=== PATIENT | female | born 1985 | race Caucasian/White ===

== ENCOUNTER 2022-04-19 09:16 | Emergency (ER) | payer OTHER, SELFPAY ==
[2022-04-19 09:26] VITALS: BP 136/78; PULSE 71; RESP 16; TEMP 36.4; O2SAT 99; BMI 21.3
--- NOTE | 2022-04-19 09:29 | DI.RAD.S_ITS ---
PROCEDURE: XR HAND RT MIN 3V INDICATIONS: punched a fridge, mild swelling to 5th knuckle TECHNIQUE: 3 views of the hand(s) acquired. COMPARISON: None. FINDINGS: Bones: There is a moderately displaced, moderately angulated fracture of distal 5th metacarpal. No additional fractures seen. Soft tissues: Soft tissue swelling is seen. IMPRESSION: Distal 5th metacarpal fracture. Dictated by: Moncho Steiner M.D. on 04/19/2022 at 8:56 Approved by: Moncho Steiner M.D. on 04/19/2022 at 8:56
--- NOTE | 2022-04-19 09:50 | ED_ITS ---
HPI - Extremity Injury (Upper) General Chief Complaint: Extremity Injury, Upper Stated Complaint: Possible nuckle fracture Time Seen by Provider: 04/19/22 09:22 History of Present Illness HPI narrative: 37-year-old female nonsmoker with noncontributory medical history presents with a chief complaint of right hand pain after punching a refrigerator about 1 hour ago. She is pain over the knuckle on her right hand at the base of her pinky. There is no laceration or abrasion. She denies any numbness, tingling or weakness. She denies any pain in the wrist, elbow or shoulder. She is otherwise well and free of complaint Review of Systems Review of Systems Narrative: GENERAL: Denies chills, fatigue, malaise, fever, sweats. HEENT: Denies sinus pain, ear pain, sore throat, difficulty swallowing, dizziness. RESPIRATORY: Denies dyspnea, cough, wheezing, hemoptysis, sputum. CARDIOVASCULAR: Denies chest pain, palpitations, orthopnea, edema, GASTROINTESTINAL: Denies nausea, vomiting, abdominal pain, diarrhea, constipation, melena. : Denies dysuria, frequency, incontinence, hematuria, urinary retention. MUSCULOSKELETAL: See HPI SKIN: Denies rash, skin lesions, or other NEUROLOGIC: Denies weakness, headache, numbness, change in speech, confusion, seizures, incoordination. PSYCHIATRIC: No concerning psychosocial issues. 12 point review of systems is negative except for those stated above Exam Narrative Exam Narrative: GEN: AOx3 and in mild distress EYES: Pupils are equal, round, and reactive to light and accommodation. Extraoccular muscles are intact bilaterally. There is no subconjunctival hemorrhage or exudate. CHEST: Lungs are clear to auscultation bilaterally and free of wheezes, rales, or rhonchi. Heart rate is regular rhythm, there are no murmurs, clicks, rubs, or gallops. There is no chest wall tenderness. ABD: Abdomen is soft and nontender. There is no guarding or rebound. Bowel sounds are normal in all 4 quadrants. There is no mass or organomegaly. EXT: Full but painful range of motion of right hand and fingers. Pain and tenderness overlying 5th metacarpal phalangeal joint. Minimal swelling, closed, isolated and neurovascularly intact SKIN: Warm, pink, and dry. No erythema or rash Initial Vital Signs Initial Vital Signs: Vital Signs Temperature 97.6 F 04/19/22 09:26 Pulse Rate 71 04/19/22 09:26 Respiratory Rate 16 04/19/22 09:26 Blood Pressure 136/78 04/19/22 09:26 Pulse Oximetry 99 04/19/22 09:26 Oxygen Delivery Method 04/19/22 09:26 Procedures Nerve Block Nerve Block 1: Time out performed: Yes Local Anesthetic: lidocaine 2% Amount of anesthesia used (mL): 3 Side: right Nerve Blocks: hematoma block Procedure Successful: No Patient Tolerated Procedure: Well Complications: pain with procedure Orthopedic Fracture Reduction Fracture #1: Time Out Performed: Yes Side: right Fracture Reduction Location: metatarsal Analgesia: hematoma block Technique: direct manipulation Post-reduction neuro exam: intact Post-reduction vascular exam: intact Splint Applied: Yes Patient Tolerated Procedure: Well Orthopedic Splinting/Casting Injury #1: Side: right Upper Extremity Injury Location: hand Upper Extremity Immobilizer: ulnar gutter Post splinting neuro exam: intact Post splinting vascular exam: intact Placed by: Provider Additional Comments: Hematoma block described above provided minimal relief. I did attempt reduction with splint placement, but have little confidence in approved alignment. Will NOT order repeat xray, discussed with Dr. Harris (Ortho) she agrees Course Orders Ordered: ED Orders 04/19/22 09:29 XR hand RT min 3V Stat Consultations Consultation #1: Case discussed with on-call orthopedist, after discussion of history and physical exam and her independent review of imaging she is comfortable with likely failed attempt at reduction, choice of splint and follow-up. Vital Signs Vital signs: Vital Signs - 8 hr 04/19/22 09:26 Temperature 97.6 F Pulse Rate 71 Respiratory Rate 16 Blood Pressure 136/78 Pulse Oximetry 99 Oxygen Delivery Method Room Air MDM - Extremity Injury (Upper) MDM Narrative Medical decision making narrative: [37-year-old female with hand pain after punching a refrigerator. This is closed, isolated and neurovascularly intact] Multiple etiologies for patient's symptoms considered including, but not limited to: [Fracture, dislocation versus other] Prior Charts reviewed: None available Labs reviewed and interpreted by myself: None indicated Imaging reviewed: Moderately angulated and displaced 5th metacarpal fracture Consultations: Discussed with Dr. Mack Harris, on-call orthopedist, see details above Patient's symptoms improved over duration of stay with above-stated therapies. Hematoma block performed and attempt at fracture reduction likely minimally successful at best, patient placed in intrinsic plus splint been encouraged to follow closely with local orthopedist Findings and discharge diagnosis discussed with patient/family followed by verbalization of understanding Return precautions discussed with patient/family whom verbalize understanding of diagnosis and plan Discharge Plan Departure Patient Disposition: Home Clinical Impression: Boxer's fracture Qualifiers: Encounter type: initial encounter Fracture type: closed Qualified Code(s): S62.339A - Displaced fracture of neck of unspecified metacarpal bone, initial encounter for closed fracture Instructions: DI for Fracture Activity Restrictions/Additional Instructions: *You have been diagnosed with [right hand boxer's fracture] *What to do: *Please continue to take your regular medications as directed. [ ] New medication prescriptions sent to your pharmacy: [ ] [ ] New medication written as a paper prescription [x] Tylenol and occasional Motrin for pain *Please follow up with [ Steven] of [facility] in 2-3 days, call for an appointment. Let them know you were seen in the Emergency Department and that we ask that you be seen in follow up. We will electronically transmit a record of today's note if your PCP is in our system *Return to Emergency Department if you should have any new, worsening or concerning symptoms, such as [worsening pain, significant swelling, cold extremities, numbness, tingling, weakness or other bothersome symptoms Splint Care: Keep splint clean and dry. Elevated affected body part to decrease swelling. OK to use ice pack on the affected body part. Use for 15-20 minutes each time, for 5-6x per day. If you develop worsening pain, numbness, tingling, discoloration of the affected body part, loosen the splint by loosening the ARPIT wrap, and either see your doctor for an urgent re-assessment, or return to the Emergency Department. Return to the Emergency Department for any new or worsening symptoms. Referrals: Marybel Harris MD [Physician] - Stand Alone Forms: Patient Portal/API
== END 2022-04-19 10:15 | disposition home or self-care (01) ==
PROVIDERS: Emergency Provider Emergency Medicine
DX: S62.336A Displaced fracture of neck of fifth metacarpal bone, right hand, initial encounter for closed fracture (principal); W22.8XXA Striking against or struck by other objects, initial encounter
CPT/HCPCS: 26605; 29125; 64450; 73130; 99282; 99284